=== PATIENT | female | born 1945 | race Caucasian/White ===

== ENCOUNTER → 2023-12-17 10:05 | Outpatient (REF) | payer MEDICARE, SELFPAY | LOC: HWWDC 10:05 | PROVIDERS: ATTENDING PHYSICIAN Family Medicine | DX: Z12.31 Encounter for screening mammogram for malignant neoplasm of breast (principal) | CPT/HCPCS: 77063; 77067 ==

== ENCOUNTER → 2024-11-11 08:00 | Outpatient (REF) | payer MEDICARE, SELFPAY | LOC: HWRCS 08:00 | PROVIDERS: ATTENDING PHYSICIAN Nurse Practitioner | DX: I10 Essential (primary) hypertension (principal); R01.1 Cardiac murmur, unspecified | CPT/HCPCS: 93306 ==

== ENCOUNTER → 2025-01-21 13:31 | Outpatient (REF) | payer MEDICARE, SELFPAY | LOC: HWWDC 13:31 | PROVIDERS: ATTENDING PHYSICIAN Family Medicine | DX: Z12.31 Encounter for screening mammogram for malignant neoplasm of breast (principal) | CPT/HCPCS: 77063; 77067 ==

== ENCOUNTER → 2025-02-03 09:32 | Outpatient (REF) | payer MEDICARE, SELFPAY | LOC: WDC 09:32 | PROVIDERS: ATTENDING PHYSICIAN Family Medicine | DX: R92.8 Other abnormal and inconclusive findings on diagnostic imaging of breast (principal) | CPT/HCPCS: 76642 ==